=== PATIENT | male | born 1995 | race Asian ===

== ENCOUNTER 2018-05-13 02:04 | Emergency (ER) | payer OTHER ==
--- NOTE | 2018-05-13 02:20 | EDPHY ---
H & P Stated Complaint: luq pain x2 wks, much worse tonight, neg us last week, blood test yest Time Seen by Provider: 05/13/18 02:19 HPI/ROS: HPI CHIEF COMPLAINT: Left upper quadrant abdominal pain x2 weeks HISTORY OF PRESENT ILLNESS: Very pleasant 22-year-old male, otherwise healthy denies significant medical history denies any surgical history presents emergency room with left upper quadrant abdominal pain. Patient states he has had this for past 2 weeks intermittently but getting worse. Describes it as a burning sensation. He points to pain underneath his left lower ribcage. Mainly in the left upper quadrant. States he has not had any vomiting but has had a lot of burping. Additionally he has had some watery diarrhea. No blood. No melenic stools. Denies any pleuritic pain or lung pain or chest pain. States that he went to the emergency room and ultrasound was unremarkable additionally followed up with he believes a GI doctor and had H pylori test does not know the results of it. Past Medical History: Denies significant medical history Past Surgical History: Denies significant surgical history Social History: Denies daily use drugs alcohol tobacco. He has a [employer] student he is visiting [employer] [facility] for the summer working , he is originally from [place] Family History: Denies ROS REVIEW OF SYSTEMS: A comprehensive 10 point review of systems is otherwise negative aside from elements mentioned in the history of present illness. Exam Constitutional nontoxic. No acute distress triage nursing summary reviewed, vital signs reviewed, awake/alert. Eyes normal conjunctivae and sclera, EOMI, PERRLA. HENT normal inspection, atraumatic, moist mucus membranes, no epistaxis, neck supple/ no meningismus, no raccoon eyes. Respiratory clear to auscultation bilaterally, normal breath sounds, no respiratory distress, no wheezing. Cardiovascular rate normal, regular rhythm, no murmur, no edema, distal pulses normal. Gastrointestinal complains of left upper quadrant abdominal pain, mildly tender on exam, no rebound, no guarding, normal bowel sounds, no distension, no pulsatile mass. Genitourinary no CVA tenderness. Musculoskeletal no midline vertebral tenderness, full range of motion, no calf swelling, no tenderness of extremities, no meningismus, good pulses, neurovascularly intact. Skin pink, warm, & dry, no rash, skin atraumatic. Neurologic awake, alert and oriented x 3, AAOx3, moves all 4 extremities equally, motor intact, sensory intact, CN II-XII intact, normal cerebellar, normal vision, normal speech. Psychiatric normal mood/affect. Heme/Lymph/Immune no lymphadenopathy. Differential diagnosis includes but is not limited to and in no particular order : Bowel obstruction, appendicitis, gallbladder disease, diverticulitis, colitis , enteritis, perforated viscus, gastritis, GERD, esophagitis, urinary tract infection, pyelonephritis, kidney stones Medical Decision Making: Plan for this patient IV establishment IV fluid bolus , 20 mg IV Pepcid for GI upset, GI cocktail to see if this improves his left upper quadrant abdominal pain. Will perform CT imaging CT abdomen pelvis with IV contrast, chest x-ray, EKG, troponin, lipase, LFTs, and re-evaluate. Re-evaluation: EKG interpretation by me on record in [facility] system. Impression time of EKG 2:42 a.m., sinus rhythm rate of 58. No signs of acute ischemia no signs of cardiac arrhythmia. Nonischemic unremarkable EKG. CT scan abdomen pelvis with IV contrast called to me by Dr. Cast negative for acute intra abdominal inflammation or process. ED x-ray chest one view negative for acute cardiopulmonary disease. Blood work reviewed unremarkable. Normal lipase. Normal LFTs. CT scan unrevealing as well as chest x-ray an EKG. Patient is feeling better after GI cocktail, IV Pepcid IV Dilaudid. Re-examination abdomen is soft nontender. D-dimer negative. Chest x-ray unremarkable. EKG nonischemic. Labs reviewed unremarkable. Clinically most likely has gastritis versus peptic ulcer disease. I do recommend he follows up with Gastroenterology. Rock diet over the next 2 days no spicy fatty greasy foods. Take Zantac as prescribed. And return to the emergency room if there is worsening abdominal pain fever vomiting. Source: Patient - Personal History Current Tetanus/Diphtheria Vaccine: Unsure - Medical/Surgical History Hx Asthma: No Hx Chronic Respiratory Disease: No Hx Diabetes: No Hx Cardiac Disease: No Hx Renal Disease: No Hx Cirrhosis: No Hx Alcoholism: No Hx HIV/AIDS: No Hx Splenectomy or Spleen Trauma: No Other PMH: none - Social History Smoking Status: Never smoked Constitutional: Initial Vital Signs Temperature (C) 36.4 C 05/13/18 02:09 Heart Rate 60 05/13/18 02:09 Respiratory Rate 22 H 05/13/18 02:09 Blood Pressure 132/94 H 05/13/18 02:09 O2 Sat (%) 95 05/13/18 02:09 O2 Delivery Mode Room Air Allergies/Adverse Reactions: No Known Allergies Allergy (Unverified 05/13/18 02:08) Home Medications: Medication Instructions Recorded Omeprazole 05/13/18 Ranitidine HCl [Zantac] 150 mg PO DAILY #14 tablet 05/13/18 Medical Decision Making - Data Points Laboratory Results: Laboratory Results 05/13/18 02:34 05/13/18 02:34 05/13/18 05/13/18 05/13/18 04:15 02:40 02:34 WBC RBC Hgb Hct MCV MCH MCHC RDW Plt Count MPV Neut % (Auto) Lymph % (Auto) [place] % (Auto) Eos % (Auto) Baso % (Auto) Nucleat RBC Rel Count Absolute Neuts (auto) Absolute Lymphs (auto) Absolute Monos (auto) Absolute Eos (auto) Absolute Basos (auto) Absolute Nucleated RBC Immature Gran % Immature Gran # D-Dimer < 0.27 ug/mLFEU ug/mLFEU (0.00-0.50) VBG Lactic Acid 0.9 mmol/L mmol/L (0.7-2.1) Sodium Potassium Chloride Carbon Dioxide Anion Gap BUN Creatinine Estimated GFR Glucose Calcium Total Bilirubin Conjugated Bilirubin Unconjugated Bilirubin AST ALT Alkaline Phosphatase POC Troponin I 0.00 ng/mL ng/mL (0.00-0.08) Total Protein Albumin Lipase 05/13/18 05/13/18 02:34 02:34 WBC 9.69 10^3/uL H 10^3/uL (3.80-9.50) RBC 4.99 10^6/uL 10^6/uL (4.40-6.38) Hgb 15.3 g/dL g/dL (13.7-17.5) Hct 44.1 % % (40.0-51.0) MCV 88.4 fL fL (81.5-99.8) MCH 30.7 pg pg (27.9-34.1) MCHC 34.7 g/dL g/dL (32.4-36.7) RDW 12.2 % % (11.5-15.2) Plt Count 152 10^3/uL 10^3/uL (150-400) MPV 10.6 fL fL (8.7-11.7) Neut % (Auto) 54.2 % % (39.3-74.2) Lymph % (Auto) 21.4 % % (15.0-45.0) [place] % (Auto) 6.3 % % (4.5-13.0) Eos % (Auto) 17.4 % H % (0.6-7.6) Baso % (Auto) 0.5 % % (0.3-1.7) Nucleat RBC Rel Count 0.0 % % (0.0-0.2) Absolute Neuts (auto) 5.25 10^3/uL 10^3/uL (1.70-6.50) Absolute Lymphs (auto) 2.07 10^3/uL 10^3/uL (1.00-3.00) Absolute Monos (auto) 0.61 10^3/uL 10^3/uL (0.30-0.80) Absolute Eos (auto) 1.69 10^3/uL H 10^3/uL (0.03-0.40) Absolute Basos (auto) 0.05 10^3/uL 10^3/uL (0.02-0.10) Absolute Nucleated RBC 0.00 10^3/uL 10^3/uL (0-0.01) Immature Gran % 0.2 % % (0.0-1.1) Immature Gran # 0.02 10^3/uL 10^3/uL (0.00-0.10) D-Dimer VBG Lactic Acid Sodium 138 mEq/L mEq/L (135-145) Potassium 3.7 mEq/L mEq/L (3.3-5.0) Chloride 104 mEq/L mEq/L (97-110) Carbon Dioxide 23 mEq/l mEq/l (22-31) Anion Gap 11 mEq/L mEq/L (8-16) BUN 15 mg/dL mg/dL (7-23) Creatinine 1.0 mg/dL mg/dL (0.7-1.3) Estimated GFR > 60 Glucose 92 mg/dL mg/dL (70-100) Calcium 9.4 mg/dL mg/dL (8.5-10.4) Total Bilirubin 1.2 mg/dL mg/dL (0.1-1.4) Conjugated Bilirubin 0.2 mg/dL mg/dL (0.0-0.5) Unconjugated Bilirubin 1.0 mg/dL mg/dL (0.0-1.1) AST 19 IU/L IU/L (17-59) ALT 32 IU/L IU/L (21-72) Alkaline Phosphatase 54 IU/L IU/L (38-126) POC Troponin I Total Protein 7.6 g/dL g/dL (6.3-8.2) Albumin 4.6 g/dL g/dL (3.5-5.0) Lipase 64 IU/L IU/L (23-300) Medications Given: Discontinued Medications Al Hydroxide/Mg Hydroxide (Maalox Susp) 30 ml PO ONCE ONE Stop: 05/13/18 02:23 Last Admin: 05/13/18 02:38 Dose: 30 ml Famotidine (Pepcid) 20 mg IVP EDNOW ONE Stop: 05/13/18 02:31 Last Admin: 05/13/18 02:38 Dose: 20 mg Hydromorphone HCl (Dilaudid) 0.5 mg IVP EDNOW ONE Stop: 05/13/18 04:15 Last Admin: 05/13/18 04:19 Dose: 0.5 mg Hyoscyamine Sulfate (Levsin, Hyomax-Sl) 0.25 mg PO ONCE ONE Stop: 05/13/18 02:23 Last Admin: 05/13/18 02:38 Dose: 0.25 mg Sodium Chloride (Ns) 1,000 mls @ 0 mls/hr IV EDNOW ONE; Wide Open PRN Reason: Protocol Stop: 05/13/18 02:23 Last Admin: 05/13/18 02:38 Dose: 1,000 mls Lidocaine (Lidocaine 2% Viscous) 15 ml PO ONCE ONE Stop: 05/13/18 02:23 Last Admin: 05/13/18 02:38 Dose: 15 ml Ondansetron HCl (Zofran) 4 mg IVP EDNOW ONE Stop: 05/13/18 02:23 Last Admin: 05/13/18 02:39 Dose: 4 mg Point of Care Test Results: Chemistry 05/13/18 02:40 POC Troponin I 0.00 ng/mL ng/mL (0.00-0.08) Departure - Departure Disposition: Home, Routine, Self-Care Condition: Good Instructions: Gastritis (ED), Acute Abdominal Pain (ED) Additional Instructions: 1. Rock diet no spicy fatty greasy foods over the next 24-48 hours. 2. Follow up with her primary care doctor and Gastroenterology 3. Zantac as prescribed. 4. Would not recommend drinking coffee are alcohol. Referrals: Satish Martin DO [Primary Care Provider] - As per Instructions Polo Pool MD, FACG [Medical Doctor] - As per Instructions Prescriptions: Ranitidine HCl [Zantac] 150 mg PO DAILY #14 tablet
[2018-05-13] MEDS ORDERED: ONDANSETRON 4 MG/2 ML VIAL IVP ONE (02:22)
[2018-05-13] MEDS ORDERED: NS 1,000 ML IV ONE (02:22)
[2018-05-13] MEDS ORDERED: MAG HYDROX/AL HYDROX/SIMETH 30 ML UDCUP PO ONE (02:22)
[2018-05-13] MEDS ORDERED: LIDOCAINE 2% VISCOUS 15 ML UDCUP PO ONE (02:22)
[2018-05-13] MEDS ORDERED: HYOSCYAMINE SULFATE 0.125 MG TAB PO ONE (02:22)
[2018-05-13] MEDS ORDERED: FAMOTIDINE 20 MG/2 ML SDV IVP ONE (02:30)
[2018-05-13 02:43] LABS: PLATELET COUNT 152 10^3/uL (150-400)
[2018-05-13] MEDS ORDERED: IOPAMIDOL (ISOVUE-300) 100 ML BTL ONE (02:43)
--- NOTE | 2018-05-13 02:45 | CPEKG ---
Heart Rate: 58 RR Interval: 1034 P-R Interval: 192 QRSD Interval: 98 QT Interval: 428 QTC Interval: 421 P [place]: 10 QRS [place]: 81 T Wave [place]: 41 EKG Severity - NORMAL ECG - EKG Impression: SINUS RHYTHM Electronically Signed By: Fracisco Metz 13-May-2018 08:07:05
[2018-05-13] MEDS ORDERED: HYDROmorphONE/DILAUDID 2 MG/ML INJ IVP ONE (04:14)
[2018-05-13] MEDS ORDERED: HYDROmorphONE/DILAUDID 1 MG/ML INJ ONE (04:15)
[2018-05-13 05:15] VITALS: BP 120/76
== END 2018-05-13 05:14 | disposition home or self-care (01) ==
DX: R10.12 Left upper quadrant pain (principal); E86.9 Volume depletion, unspecified
CPT/HCPCS: 84484-PO; 96374; J1170; J2405; Q9967